=== PATIENT | female | born 1995 | race Caucasian/White ===

== ENCOUNTER 2018-08-30 08:54 | Emergency (ER) | payer OTHER ==
[~2018-08-30] VITALS: Ht 167.6 cm; Wt 69.9 kg
== END 2018-08-30 11:14 | disposition home or self-care (01) ==
LOC: ER 08:54
DX: M79.675 Pain in left toe(s) (principal); S90.212S Contusion of left great toe with damage to nail, sequela; X58.XXXS Exposure to other specified factors, sequela